=== PATIENT | male | born 1975 | race Caucasian/White ===

== ENCOUNTER 2016-12-13 17:29 | Emergency (ER) | payer SELFPAY ==
--- NOTE | 2016-12-13 19:31 | ER Document Report ---
HPI - HPI Patient complains to provider of: Flulike symptoms Onset: Other Onset/Duration: Gradual Quality of pain: Achy Severity: Moderate Pain Level: 3 Context: Patient states he has had flu symptoms for the last 2-3 days. Not sure if he has had any fever, but he says he had chills last night. States he has been exposed to coworkers that have bronchitis, pneumonia, and strep. Denies nausea or vomiting. Has been taking [id number] medicines intermittently for symptom relief. Associated Symptoms: Chills, Nonproductive cough, Rhinnorhea. denies: Shortness of breath Exacerbated by: Denies Relieved by: Denies Similar symptoms previously: No Recently seen / treated by doctor: No - ROS ROS below otherwise negative: Yes Systems Reviewed and Negative: Yes All other systems reviewed and negative - CONSTITUTIONAL Constitutional: REPORTS: Chills - EENT EENT: REPORTS: Sore Throat, Ear Pain - Ears are poppin, Nasal Drainage-Clear - NEURO Neurology: REPORTS: Headache - CARDIOVASCULAR Cardiovascular: DENIES: Chest pain - RESPIRATORY Respiratory: REPORTS: Coughing. DENIES: Trouble Breathing - GASTROINTESTINAL Gastrointestinal: DENIES: Abdominal Pain - URINARY Urinary: DENIES: Dysuria - MUSCULOSKELETAL Musculoskeletal: DENIES: Extremity pain - DERM Skin Color: Normal, [place] Past Medical History - General Information source: Patient - Social History Smoking Status: Never Smoker Frequency of alcohol use: None Drug Abuse: None Lives with: Family Family History: Reviewed & Not Pertinent Patient has suicidal ideation: No Patient has homicidal ideation: No Psychiatric Medical History: Reports: Hx Depression Past Surgical History: Reports: Hx Cholecystectomy, Hx Tonsillectomy - T/A - Immunizations Hx Diphtheria, Pertussis, Tetanus Vaccination: Yes - 11/03/12 Vertical Provider Document - CONSTITUTIONAL Agree With Documented VS: Yes Exam Limitations: No Limitations General Appearance: WD/WN, No Apparent Distress - INFECTION CONTROL TRAVEL OUTSIDE OF THE [place] IN LAST 30 DAYS: No - HEENT HEENT: Atraumatic, Normocephalic Notes: TMs dull bilaterally, throat with mild erythema. - NECK Neck: Normal Inspection, Supple - RESPIRATORY Respiratory: Breath Sounds Normal, No Respiratory Distress O2 Sat by Pulse Oximetry: 98 - CARDIOVASCULAR Cardiovascular: Regular Rate, Regular Rhythm - GI/ABDOMEN Gastrointestinal: Abdomen Soft, Abdomen Non-Tender - MUSCULOSKELETAL/EXTREMETIES Musculoskeletal/Extremeties: MAEW - NEURO Level of Consciousness: Awake, Alert, Appropriate - DERM Integumentary: Warm, Dry Course - Vital Signs Vital signs: Temp Pulse Resp BP Pulse Ox 99.1 F 88 20 148/109 H 98 12/13/16 17:34 12/13/16 17:34 12/13/16 17:58 12/13/16 17:34 12/13/16 17:34 Discharge - Discharge Clinical Impression: URI, acute Condition: Good Disposition: HOME, SELF-CARE Additional Instructions: Continue OTC meds push fluids tylenol or motrin prn follow up with your doctor if not better in 2-3 days return as needed Prescriptions: Ibuprofen 800 mg PO TID PRN #20 tablet PRN Reason: Forms: Return to Work
[2016-12-13 19:50] VITALS: BP 145/97
== END 2016-12-13 19:50 | disposition home or self-care (01) ==
LOC: ER 17:29
DX: J06.9 Acute upper respiratory infection, unspecified (principal); R68.83 Chills (without fever); H92.03 Otalgia, bilateral; Z90.49 Acquired absence of other specified parts of digestive tract
CPT/HCPCS: 87070; 87804; 87880; 99283